=== PATIENT | female | born 1990 | race Caucasian/White ===

== ENCOUNTER 2018-02-08 15:14 | Emergency (ER) | payer OTHER ==
[2018-02-08] MEDS ORDERED: KETOROLAC 30 MG/1 ML SDV IVP ONE (15:48)
[2018-02-08] MEDS ORDERED: NS 1,000 ML IV ONE (15:48)
--- NOTE | 2018-02-08 15:57 | EDPHY ---
H & P Time Seen by Provider: 02/08/18 15:34 HPI/ROS: HPI Lower abdominal pain. 28-year-old female by private vehicle. She complains of worsening lower abdominal and periumbilical pain since this morning. She reports that she noticed a dull ache in her mid suprapubic area last night. She reports the pain is gotten considerably worse today. She describes the pain as cramping and aching. She describes it as being across her lower abdomen and radiating to her back. Last menstrual period was a week and a half ago. She denies any vaginal bleeding or vaginal discharge. She is sexually active. She is concerned that she may be . She has had some mild diarrhea the last 2 days with her last bowel movement being yesterday. She has had mild nausea but no vomiting. Last meal was this morning. No prior abdominal surgical history. Denies flank pain. ROS: Constitutional: No fever, no chills. No weakness. Eyes: No discharge. No changes in vision. ENT: No sore throat. No nasal congestion or rhinorrhea. Respiratory: No cough. No shortness of breath. Cardiac: No chest pain, no palpitations. Gastrointestinal: As above, no vomiting, no diarrhea. Genitourinary: No hematuria. No dysuria or increased frequency with urination. As above Musculoskeletal: No back pain. No neck pain. No myalgias or arthralgias. Skin: No rashes. Neurological: No headache. No focal weakness or altered sensation. Past medical history: Bipolar. Social history: Nonsmoker. No alcohol. Has a boyfriend. Sexually active. Here by herself. Physical Exam: General Appearance: Alert, no distress. Mildly anxious. This patient is responding to questions appropriately and in full sentences. This patient appears well-hydrated and well-nourished. Eyes: Pupils equal and round no pallor or injection. No lid edema, erythema or injection. Respiratory: There are no retractions, lungs are clear to auscultation with good air movement bilaterally. Cardiovascular: Regular rate and rhythm. No murmur. Gastrointestinal: Abdomen is soft with moderate to marked tenderness on palpation through the lower abdomen. She also has tenderness on palpation in the periumbilical area, no masses, bowel sounds are present. No focal tenderness at McBurney's point. No De Souza sign. Neurological: Motor sensory function is grossly intact. Cranial nerves are normal. Gait is normal. Skin: Warm and dry, no rashes. Musculoskeletal: No CVA tenderness bilaterally. Extremities are symmetrical. All joints range without pain or impingement. Psychiatric: No agitation. No depression. Database: EKG: Imaging: CT abdomen and pelvis with IV contrast: Significant for a 6.4 cm anterior pelvic cyst which is above the bladder. Results were discussed with staff radiologist Dr. Andrew Aguilar. He recommends a pelvic ultrasound for further clarification. Pelvic ultrasound: Significant for left-sided 6 cm x 6 cm x 4.6 cm ovarian cyst which is hemorrhagic. There is a 3 cm ovarian cyst on the right side. No evidence of torsion. Minimal free fluid. The cyst on the left side sits on top of the bladder. Results were discussed with staff radiologist Dr. Austin Cameron. Procedures: Emergency department course: Triage vital signs reviewed and are normal. IV was placed. She was started on IV normal saline with 1 L to be given over the next hour. She will be given 30 mg of IV Toradol for pain. No history of renal dysfunction, peptic ulcer disease or other contraindications to NSAIDs. 5:25 p.m., the patient was re-evaluated, she is comfortable at this time. Results of her CT scan discussed with her. Need for an ultrasound discussed. She consents. 6:20 p.m., the patient was re-evaluated, she is resting comfortably at this time. Results of her ultrasound and diagnosis ovarian cyst discussed with her. Repeat abdominal exam she is soft with mild left lower quadrant tenderness on palpation. Bowel sounds are active. She feels comfortable going home at this time and I feel she is safe for discharge. Plan will be to have her follow up with OBGYN for re-evaluation and repeat ultrasound. She is in agreement with this. She can easily return to the emergency department if necessary. Return to emergency department precautions were reviewed with her thoroughly. All of her questions were answered. She was discharged from the emergency department in good condition. Differential Diagnosis: The differential diagnosis on this patient includes but is not limited to appendicitis, colitis, TOA, ovarian torsion, volvulus. This represents a partial list of diagnoses considered. These considerations are based on history , physical exam, past history, reassessment and diagnostic testing. Smoking Status: Never smoked Constitutional: Initial Vital Signs Temperature (C) 36.7 C 11/14/18 15:26 Heart Rate 88 02/08/18 15:26 Respiratory Rate 18 02/08/18 15:26 Blood Pressure 120/81 H 02/08/18 15:26 O2 Sat (%) 98 02/08/18 15:26 O2 Delivery Mode Room Air Allergies/Adverse Reactions: No Known Allergies Allergy (Unverified 02/08/18 15:26) Medical Decision Making - Diagnostics Imaging Results: Imaging Impressions Abdomen CT 02/08/18 15:49 Impression: Large anterior pelvic cyst with a small amount of pelvic free fluid. This likely represents a left ovarian cyst. Recommend pelvic ultrasound for further evaluation. Results discussed with Dr. Raines. General information for patients regarding this examination can be found at [email or web address]. If you have questions or comments about this report, please contact me at (hospital) or [phone] (cell). - Data Points Laboratory Results: Laboratory Results 02/08/18 15:57 02/08/18 15:57 02/08/18 02/08/18 02/08/18 17:47 15:57 15:57 WBC RBC Hgb Hct MCV MCH MCHC RDW Plt Count MPV Neut % (Auto) Lymph % (Auto) [place] % (Auto) Eos % (Auto) Baso % (Auto) Nucleat RBC Rel Count Absolute Neuts (auto) Absolute Lymphs (auto) Absolute Monos (auto) Absolute Eos (auto) Absolute Basos (auto) Absolute Nucleated RBC Immature Gran % Immature Gran # Sodium 139 mEq/L mEq/L (135-145) Potassium 4.0 mEq/L mEq/L (3.3-5.0) Chloride 105 mEq/L mEq/L (97-110) Carbon Dioxide 22 mEq/l mEq/l (22-31) Anion Gap 12 mEq/L mEq/L (6-14) BUN 11 mg/dL mg/dL (7-23) Creatinine 0.6 mg/dL mg/dL (0.6-1.0) Estimated GFR > 60 Glucose 87 mg/dL mg/dL (70-100) Calcium 9.8 mg/dL mg/dL (8.5-10.4) Total Bilirubin 0.3 mg/dL mg/dL (0.1-1.4) Conjugated Bilirubin 0.2 mg/dL mg/dL (0.0-0.5) Unconjugated Bilirubin 0.1 mg/dL mg/dL (0.0-1.1) AST 26 IU/L IU/L (14-46) ALT 27 IU/L IU/L (9-52) Alkaline Phosphatase 66 IU/L IU/L (38-126) Total Protein 8.1 g/dL g/dL (6.3-8.2) Albumin 4.7 g/dL g/dL (3.5-5.0) Beta HCG, Qual NEGATIVE Urine Color PALE YELLOW Urine Appearance CLEAR Urine pH 5.0 (5.0-7.5) Ur Specific [place] > 1.035 H (1.002-1.030) Urine Protein NEGATIVE (NEGATIVE) Urine Ketones TRACE H (NEGATIVE) Urine Blood NEGATIVE (NEGATIVE) Urine Nitrate NEGATIVE (NEGATIVE) Urine Bilirubin NEGATIVE (NEGATIVE) Urine Urobilinogen NEGATIVE EU EU (0.2-1.0) Ur Leukocyte Esterase NEGATIVE (NEGATIVE) Urine RBC NONE SEEN /hpf /hpf (0-3) Urine WBC 0-1 /hpf /hpf (0-3) Ur Epithelial Cells TRACE /lpf /lpf (NONE-1+) Urine Mucus TRACE /lpf /lpf (NONE-1+) Urine Glucose NEGATIVE (NEGATIVE) 02/08/18 15:57 WBC 7.26 10^3/uL 10^3/uL (3.80-9.50) RBC 5.06 10^6/uL 10^6/uL (4.18-5.33) Hgb 14.1 g/dL g/dL (12.6-16.3) Hct 41.8 % % (38.0-47.0) MCV 82.6 fL fL (81.5-99.8) MCH 27.9 pg pg (27.9-34.1) MCHC 33.7 g/dL g/dL (32.4-36.7) RDW 12.1 % % (11.5-15.2) Plt Count 360 10^3/uL 10^3/uL (150-400) MPV 9.0 fL fL (8.7-11.7) Neut % (Auto) 64.8 % % (39.3-74.2) Lymph % (Auto) 25.5 % % (15.0-45.0) [place] % (Auto) 6.9 % % (4.5-13.0) Eos % (Auto) 2.1 % % (0.6-7.6) Baso % (Auto) 0.3 % % (0.3-1.7) Nucleat RBC Rel Count 0.0 % % (0.0-0.2) Absolute Neuts (auto) 4.71 10^3/uL 10^3/uL (1.70-6.50) Absolute Lymphs (auto) 1.85 10^3/uL 10^3/uL (1.00-3.00) Absolute Monos (auto) 0.50 10^3/uL 10^3/uL (0.30-0.80) Absolute Eos (auto) 0.15 10^3/uL 10^3/uL (0.03-0.40) Absolute Basos (auto) 0.02 10^3/uL 10^3/uL (0.02-0.10) Absolute Nucleated RBC 0.00 10^3/uL 10^3/uL (0-0.01) Immature Gran % 0.4 % % (0.0-1.1) Immature Gran # 0.03 10^3/uL 10^3/uL (0.00-0.10) Sodium Potassium Chloride Carbon Dioxide Anion Gap BUN Creatinine Estimated GFR Glucose Calcium Total Bilirubin Conjugated Bilirubin Unconjugated Bilirubin AST ALT Alkaline Phosphatase Total Protein Albumin Beta HCG, Qual Urine Color Urine Appearance Urine pH Ur Specific [place] Urine Protein Urine Ketones Urine Blood Urine Nitrate Urine Bilirubin Urine Urobilinogen Ur Leukocyte Esterase Urine RBC Urine WBC Ur Epithelial Cells Urine Mucus Urine Glucose Medications Given: Discontinued Medications Sodium Chloride (Ns) 1,000 mls @ 0 mls/hr IV EDNOW ONE; Wide Open PRN Reason: Protocol Stop: 02/08/18 15:49 Last Admin: 02/08/18 16:12 Dose: 1,000 mls Ketorolac Tromethamine (Toradol) 30 mg IVP EDNOW ONE Stop: 02/08/18 15:49 Last Admin: 02/08/18 16:12 Dose: 30 mg Ondansetron HCl (Zofran) 4 mg IVP EDNOW ONE Stop: 02/08/18 16:12 Last Admin: 02/08/18 16:12 Dose: 4 mg Departure - Departure Disposition: Home, Routine, Self-Care Clinical Impression: Abdominal pain, Ovarian cyst Condition: Good Instructions: Ovarian Cyst (ED), Ruptured Ovarian Cyst (ED) Additional Instructions: Read and follow provided instructions. Follow-up with your OBGYN in the next 2-3 days for re-evaluation. You should also have your ultrasound repeated by your OBGYN at that time. Ibuprofen dosin mg every 6 hours with meals for the next 3 days only. Take only as needed for pain. Return to the emergency department immediately for worsening pain, fever, vomiting or other serious concerns. Referrals: TYSHAWN BUSBY [Other] - As per Instructions Jazmin Panda MD [Medical Doctor] - As per Instructions
[2018-02-08 16:06] LABS: PLATELET COUNT 360 10^3/uL (150-400)
[2018-02-08] MEDS ORDERED: ONDANSETRON 4 MG/2 ML VIAL ONE (16:07)
[2018-02-08] MEDS ORDERED: ONDANSETRON 4 MG/2 ML VIAL IVP ONE (16:11)
[2018-02-08] MEDS ORDERED: IOPAMIDOL (ISOVUE-300) 100 ML BTL ONE (16:38)
[2018-02-08 18:14] VITALS: BP 114/70
== END 2018-02-08 18:40 | disposition home or self-care (01) ==
DX: N83.292 Other ovarian cyst, left side (principal); N83.291 Other ovarian cyst, right side; E86.9 Volume depletion, unspecified
CPT/HCPCS: 96374; J1885; J2405; Q9967